=== PATIENT | female | born 1940 | race Hispanic/Latino ===

== ENCOUNTER 2021-01-02 10:33 | Inpatient (IN) | payer MEDICARE, OTHER ==
[~2021-01-02] VITALS: Ht 154.9 cm; Wt 49.8 kg
[2021-01-02] MEDS ORDERED: AMLODIPINE BESYL5 MG PO (13:10)
[2021-01-02] MEDS ORDERED: METFORMIN HCL500 M1 PO (13:11)
[2021-01-02] MEDS ORDERED: LOSARTAN POTASS50 MG PO (13:11)
[2021-01-02] MEDS ORDERED: PIOGLITAZONE HC15 MG PO (13:12)
[2021-01-02] MEDS ORDERED: METOPROLOL SUCC25 MG PO (13:12)
--- NOTE | 2021-01-02 17:10 | NUR ---
PT TO CCU ROOM 129 FROM ER VIA [place]. PT IS ALERT AND ORIENTED X4, ABLE TO TRANSFER WITH ONE PERSON ASSIST TO BED. PT NORMALY USES WALKER. DAUGHTER OF THE PT (ALAN) IS AT THE BEDSIDE. PT ABLE TO ANSWER QUESTIONS EASILY. PT DENIES PAIN AND NAUSEA AT THIS TIME, HOWEVER NEEDS TO SIT UP IN THE BED TO ASSIST WITH WOB. 2L O2 VIA NC IN PLACE.
--- NOTE | 2021-01-02 18:35 | NUR ---
PT IN BED WITH A WARM BLANKET, CALL LIGHT WITHIN REACH. PT WAS ABLE TO EAT SOUP FOR DINNER. IV LASIX GIVEN, PT YET TO VOID. PT REMAINS ALERT AND ORIENTED X4. PT AGREES TO USING HER CALL LIGHT FOR ASSISTANCE.
--- NOTE | 2021-01-02 19:30 | NUR ---
report recieved, care of patient assumed at this time.
--- NOTE | 2021-01-02 20:12 | NUR ---
assessment completed. pt ambulated to bathroom with walker to void. short of breath with exertion but steady on feet. respirations 20-25 at rest, tachypneic with exertion and ambulation. lungs sound diminished in both bases. Pt has 2 plus edema in bilateral lower extremeties up to knee. Assisted with positioning in bed. spoe=94% on 1 L NC. plan of care for evening discussed with pt. call light within reach. denies further needs at this time.
--- NOTE | 2021-01-02 21:00 | NUR ---
PT DID NOT RECIEVE INSULIN FOR BLOOD GLUCOSE IN NORMAL RANGE (SEE EMAR). ASSISTED PT WITH REPOSITIONING IN BED, GIVEN WATER. CALL LIGHT WITHIN REACH. NO FURTHER NEEDS AT THIS TIME.
--- NOTE | 2021-01-02 21:15 | EKG ---
[facility] [address] [facility] [place] [address] Signed Normal sinus rhythm Nonspecific T wave abnormality Abnormal ECG No previous ECGs available Confirmed by SAYDA AGUIRRE MD ([id number]) on 01/02/2021 9:15:40 PM Electronically Signed By: SAYDA AGUIRRE MD 01/02/[id number] PATIENT NAME: MASSIEL CHAVEZ Electrocardiogram DATE OF : 38 PHYSICIAN: SAYDA AGUIRRE MD REPORT #: [id number] REPORT IS CONFIDENTIAL AND NOT TO BE RELEASED WITHOUT AUTHORIZATION
--- NOTE | 2021-01-02 22:17 | NUR ---
lab in room at this time for blood draw
--- NOTE | 2021-01-02 22:30 | NUR ---
PT AMBULATED TO BATHROOM AND NOW BACK TO BED. SPO2 DECREASED TO 83 PERCENT WITH EXERTION. BACK IN BED, OXYGEN IN PLACE, SPO2 =94 PERCENT. CALL LIGHT WITHIN REACH. WILL CONTINUE TO MONITOR.
--- NOTE | 2021-01-02 23:05 | NUR ---
DR AGUIRRE UPDATED ON CRITICAL TROPONIN AND PATIENTS RESPONSE TO THE LASIX. NO NEW ORDERS AT THIS TIME.
--- NOTE | 2021-01-03 00:29 | NUR ---
ASSESSMENT COMPLETED. FINE CRACKLES NOTED IN LEFT LOWER LUNG BASE, NO OTHER CHANGES NOTED FROM PREVIOUS ASSESSMENT. CALL LIGHT WITHIN REACH. NO FUTHER NEEDS AT THIS TIME.
--- NOTE | 2021-01-03 02:00 | NUR ---
pt resting with eyes closed. breathing even and unlabored. spo2=94% on 2 L NC. call light within reach. will continue to monitor.
--- NOTE | 2021-01-03 04:55 | NUR ---
PT UP TO USE BATHROOM, ASSESSMENT COMPLETED AT THIS TIME. PT SHORT OF BREATH WITH EXERTION. SPO2 =85% WITH AMBULATION. BACK IN BED AND ON 2 L NC, SPO2 =96%. LUNGS SOUND DIMINISHED IN BOTH BASES. RESPIRATIONS EVEN AND UNLABORED WITH REST. CALL LIGHT WITHIN REACH. NO FURTHER NEEDS AT THIS TIME.
--- NOTE | 2021-01-03 05:07 | NUR ---
pt to bsc x1 sba. pt short of breath with minimal movement. spo2 decreased to 85%, O2 increased to 3L-NC. Spo2 increased to 92%. Pt did own pericare, assisted back to bed, side rails up, call light in reach. pt denies further needs
--- NOTE | 2021-01-03 05:23 | NUR ---
LAB IN TO DRAW BLOOD AT THIS TIME.
--- NOTE | 2021-01-03 09:15 | NUR ---
SBA TO BR WITH FWW AND 3L NASAL CANULA. TOLERATED WELL. UNABLE TO HAVE BM- RN NOTIFIED. LINEN CHANGED.
--- NOTE | 2021-01-03 12:18 | NUR ---
CCU CALLED FOR REPORT, AWAITING CALL BACK
--- NOTE | 2021-01-03 12:24 | NUR ---
REPORT RECEIVED FROM ABRAHAM DIAZ, AWAITING PTS ARRIVAL TO MED/SURG.
--- NOTE | 2021-01-03 13:15 | NUR ---
PT ARRIVED FROM CCU, TRANSPORTED BY BED. PT DENIES PAIN AND NAUSEA. PTS DAUGHTER ASHLEIGH ACCOMPANYING PT. PT ORIENTED TO ALL. 1 PERSON ASSIST UP TO BEDSIDE COMODE. PT VOIDS 100ML CLEAR YELLOW URINE. PT ASSISTED WITH DOROTEO CARE. UNDERWARE DRY. 1 PERSON ASSIST BACK TO BED. LUGN SOUNDS CLEAR, DEMINISHED IN BASES. OXGYEN SATURATIONS 95% ON 1L O1 BY NC. TELEMETRY MONITORING IN PLACE WITH NORMAL SINUS RHYTHEM NOTED. +1 PITTING EDEMA TO FEET AND ANKLES. PT DENIES ABDOMINAL TENDERNESS. PT REPORTS EDEMA IS IMPROVING. PT REPORTS DIZZINESS AT TIMES. PT RESTING IN BED WITH HEAD OF BED ELEVATED TO 30 DEGREES. BED RAILSUP. BED ALARM ON. CALL LIGHT WITHIN REACH.
--- NOTE | 2021-01-03 13:35 | NUR ---
PT REPORTS PAIN AT IV SITE WHEN ADMINISTERING MEDICAITON. IV FLUSHES WELL BUT PT CONTINUES TO REPORT PAIN. IV DC'D PER PROTOCOL GAUZE AND COBAN APPLIED. NEW IV STARTED TO LEFT FORARM PER PROTOCOL. BRISK BLOOD RETURN NOTED. PT DENIES PAIN AT NEW IV SITE. IV FLUSHED, ALCOHOL CAP APPLIED. PT RESTING IN BED WITH EYES CLOSED. RESPIRATIONS EVEN AND UNALBORED. HEAD OF BED ELEVATED TO 30 DEGREES. CALL LIGHT WITHIN REACH. BED ALARM ON.
--- NOTE | 2021-01-03 15:02 | NUR ---
THIS RN TO ROOM TO CHECK ON PT. PT RESTING IN BED WITH EYES CLOSED. HEAD OF BED ELEVATED TO 25 DEGREES. RESPIRATIONS EVEN AND UNALBORED. BED RAILS UP. CALL LIGHT WITHIN REACH. BED ALARM ON
--- NOTE | 2021-01-03 15:53 | NUR ---
THIS RN TO ROOM TO CHECK ON PT. PT RESTING IN BED WATCHING TV AND VISITING WITH DAUGHTER. PT REPORTS DIZZINESS HAS IMPROVED. STAND BY ASSIST UP TO BEDSIDE COMODE. PT VOIDS 200ML CLEAR YELLOW URINE WITHOUT ISSUE. PT PERFORMS SELF DOROTEO CARE AND PULLS UP HER OWN PANTS AND UNDERWARE. PT DENIES ADDITIONAL REQUESTS OR COMPLAINTS. CALL LIGHT WITHIN REACH. DAUGHTER AT BEDSIDE. BED ALARM ON.
--- NOTE | 2021-01-03 16:15 | NUR ---
PT TRANSFERED FROM CCU THIS SHIFT, HERE FOR CHF EXACERBATION. PT REMAINS ON BED REST WITH BATHROOM PRIVLEGES. PT UP TO BESIDE COMODE WITH 1PERSON TO STAND BY ASSIST. PT TOELRATING 60GRAHM LOW SODIUM DIET WELL. PT OREINTED TO ALL. LUNG SOUNDS CLEAR BUT DEMINISHED IN PLACES. PT REMAINS ON 1L O2 BY NC WITH OXYGEN SATURATIONS ABOVE 90%. IV LASIX GIVEN THIS SHIFT WITH MODERATE OUTPUT. CHF EDUCATION DONE WITH PT INCLUDING RED/YELLOW/GREEN ZONES. +1 PITTING EDEMA CONTINUES IN FEET AND ANKES. VARGAS CATHETER NOT IN PLACE WHEN PT WAS TRANSFERED TO MED/SURG. BLOOD SUGAR CHECKS WITH MEALS AND SLIDING SCALE INSULIN GIVEN. MONITORING LABS, AWAITING ECHOCARDIOGRAHM. BED ALARM IN PLACE FOR SAFETY. PTS DAUGHTER AT BEDSIDE FOR MOST OF SHIFT.
--- NOTE | 2021-01-03 16:25 | NUR ---
MED REC COMPLETE
--- NOTE | 2021-01-03 16:40 | NUR ---
PT CALL LIGHT ON. HERB COUNSELOR REPORTS PT NEEDS SOMETHING FOR NAUSEA. THIS RN TO ROOM TO EVALUATE. PT REPORTS SHE FEELS "WOOZY." PT DENIES NAUSEA AND DENIES EMESIS. PT DENIES DIZZINESS. BLOOD SUGAR 98 AT THIS TIME. PT DENEIS FEELINS OF HUNGER OR TREMORS. PT REPORTS FEELING "A LITLE COLD AND WOOZY." PT STATES THE FEELS STARTED AFTER COUGHING AND "IT'S BECAUSE OF MY BREATHING." LUNG SOUNDS CLEAR IN UPPER LOBES, DEMINISHED IN BASES. OXGYEN SATURATION OF 95% ON 1L O2 BY NC. PT DECLINES REPOSITONING. DENIES FEELINGS OF SHORTNESS OF BREATH. PT REPORTS SHE WOULD LIKE TO TRY NAUSEA MEDICATION. ZOFRAN GIVEN. PT WATCHING TV AND DENIES ADDITIONAL REQUESTS OR COMPLAINTS. BED RAILS UP. CALL LIGHT WITHIN REACH. BED ALARM ON. PTS DAUGHTER AT BEDSIDE.
--- NOTE | 2021-01-03 18:50 | NUR ---
THIS RN TO ROOM TO CHECK ON PT. PT REPORTS NAUSEA AND FEEINGS OF "WOOZINESS" HAVE RESOLVED. PT REPORTS SHE WAS ABLE TO EAT DINNER WITH NO ISSUES. PT DENIES PAIN AND NAUSEA. NO REQUESTS OR COMPLAINTS AT THIS TIME. CALL LIGHT WITHIN REACH. BED RAILS UP. BED ALARM ON.
--- NOTE | 2021-01-03 19:30 | NUR ---
REPORT GIVEN TO THIS RN BY ABRAHAM RIVERA. PATIENT RESTING IN SEMI-FOWLERS POSITION, WITH EYES CLOSED, RESPIRATIONS ARE REGULAR AND EVEN, AND CALL LIGHT OSKAR LALA.
--- NOTE | 2021-01-03 20:50 | NUR ---
PATIENT UP TO THE BATHROOM AND BACK TO BED 1PSBA AND FWW, THIS RN PRESENT AND PATIENT DID WELL. PATIENT'S EVENING ANTIBIOTIC HUNG AND IV FLUSHED WELL. VS STABLE AND PATIENT ASSESSMENT COMPLETE. CALL LIGHT IS IN REACH AND PATIENT HAS NO OTHER CARE NEEDS AT THIS TIME.
--- NOTE | 2021-01-03 22:46 | NUR ---
IN TO ASSIST PT TO THE TOILET, SBA FWW, NO FURTHER NEEDS AT THIS TIME, BED ALARM IS SET
--- NOTE | 2021-01-03 23:51 | NUR ---
PATIENT RESTING QUIETLY ON 1L/NC, RESPIRATIONS ARE REGULAR AND EVEN, EYES ARE CLOSED, PATIENT IN SEMI-FOWLERS POSITION IN BED. CALL LIGHT IS IN REACH AND HR=67 ON TELE AT THIS TIME.
--- NOTE | 2021-01-04 01:04 | NUR ---
PATIENT RESTING QUIETLY IN LOW FOWLERS POSITION IN BED, EYES CLOSED, RESPIRTATIONS ARE REGULAR AND EVEN, AND CALL LIGHT IS IN REACH. NO CAFRE NEEDS NOTED AT THIS TIME.
--- NOTE | 2021-01-04 02:32 | NUR ---
PATIENT REMAINS IN SEMI-FOWLERS POSITION, BUT HAS TURNED PARTIALLY TO HER LEFT SIDE AND REMAINS ON 1L/NC WITH HR=66 ON TELE. PATIENT HAS NO CURRENT CARE NEEDS AT THIS TIME AND CALL LIGHT IS IN REACH.
--- NOTE | 2021-01-04 03:43 | NUR ---
PATIENT STILL RESTING QUIETLY IN SEMI-FOWLERS POSITION TURNED TOWARD HER RIGHT SIDE. PATIENT REMAINS ON 1L/NC, RESPIRATIONS REGULAR AND EVEN, HR=68BPM ON THE TELE, AND CALL LIGHT IS IN REACH. PATIENT HAS NO CAR NEEDS AT THIS TIME.
--- NOTE | 2021-01-04 03:55 | NUR ---
IN TO ASSIST PT TO THE TOILET, DAILY WEIGHT TAKEN BEFORE RETURNING TO BED, BED ALARM SET, NO FURTHER NEEDS AT THIS TIME
--- NOTE | 2021-01-04 05:17 | NUR ---
PATIENT'S AM ASSESSMENT COMPLETE. PATIENT DENIES PAIN OR ANY OTHER CARE NEEDS AT THIS TIME. LIGHTS TURNED BACK DOWN, VS STABLE, AND I+O RECORDED. CALL LIGHT IS IN REACH.
--- NOTE | 2021-01-04 07:28 | NUR ---
PATIENT RESTING QUIETLY ON 1L/NC, EYES CLOSED, RESPIRATIONS REGULAR AND EVEN, AND CALL LIGHT IS IN REACH. SHIFT REPORT GIVEN TO ABRAHAM LAO.
--- NOTE | 2021-01-04 07:31 | NUR ---
this rn received report from eddie beltran. pt appears to be resting at this time with respirations noted and call light within reach
--- NOTE | 2021-01-04 08:18 | NUR ---
DAVE DARBY REPORTS PT IS HAVING NAUSEA, THIS RN TO ROOM. PT REPORTS "CHEST PRESSURE" AT 6/10 AND NAUSEA. PT DESCRIBES CHEST PRESSURE "LIKE I'M WEARNIGN A TIGHT BRA." ZOFRAN GIVEN. VITALS SIGNS TAKEN. BLOOD PRESSURE NOTED TO BE ELEVATED. VITAL SIGNS OTHERWISE STABLE. NO CHANGES TO FISH CULTURIST NOTED. PT REPORTS PRESSURE AND NAUSEA ARE IMPROVING WITH ZOFRAN ADMINISTRATION. CHARGE NURSE, ARRON, NOTIFIED AND TO BEDSIDE FOR EVALUATION. HEART TONES REGULAR. PT DENIES ADDITIONAL REQUESTS OR COMPLAINTS. CALL LIGHT WIHTIN REACH. PT REMAINS UP TO CHAIR. PTS PRIMARY RN UPDATED.
--- NOTE | 2021-01-04 08:27 | NUR ---
PATIENT TO BATHROOM AND THEN TO CHAIR, SBA FWW. PATIENT FELT SICK TO HER STOMACHE WHEN BACK TO CHAIR, RN NOTIFIED. CALL LIGHT IN REACH. NO FURTHER NEEDS AT THIS TIME.
--- NOTE | 2021-01-04 08:30 | NUR ---
NOTIFIED IN AM ROUNDING MEETING THAT PT HAD NAUSEA AND REPORTED CHEST TIGHTNESS, ON ASSESSMENT, PT REPORTS ITS IS LIKE HAVING TIGHT BRA ON AROUND RIBS, SHE REPORTED MILD DISCOMFORT, B/P HIGH SHE HAS CARDIAC MEDS TO BE GIVEN THIS AM. OXYGEN SATURATION 94% ON ROOM AIR, NO DYSPNEA. DR. AGUIRRE SAID SHE WOULD ROUND ON HER FIRST.
--- NOTE | 2021-01-04 08:57 | NUR ---
this rn in pts room to check on pt. briana rn in pts room previously due to pt stating she needed the restroom, pt then reported having chest tightness around the sides of her chest. by the time this rn in room pt reports that this has improved. pt reports that her nausea has improved as well and is just wanting broth this am for breakfast. pt has no other problems or concerns
--- NOTE | 2021-01-04 10:17 | NUR ---
PATIENT IN CHAIR RESTING AT THIS TIME. VITALS DONE BY RN. PATIENT REFUSED ORAL CARE AT SINK EARLIER. CALL LIGHT IN REACH. NO FURTHER NEEDS AT THIS TIME.
--- NOTE | 2021-01-04 13:25 | NUR ---
THIS RN IN PTS ROOM TO CHECK ON PT AND GIVE PT HER AFTERNOON MEDS. PT STATES THAT SHE IS DOING WELL, WHEN THIS RN WENT TO FLUSH IV AND IT WAS LEAKING. PT TOLERATED WELL WITH NEW IV PLACEMENT. PTS DAUGHTER AT BEDSIDE, ALL QUESTIONS ANSWERED TO THIS RNS ABILITY
--- NOTE | 2021-01-04 13:57 | NUR ---
PATIENT BACK TO CHAIR FROM BATHROOM, SBA FWW. VISITOR IN ROOM. VITALS AND I&O'S CHARTED. CALL LIGHT IN REACH. NO FURTHER NEEDS AT THIS TIME.
--- NOTE | 2021-01-04 18:54 | NUR ---
IN TO DO VITALS. VITALS AND I&O'S CHARTED. PATIENT TO BATHROOM FROM CHAIR, 1PA FWW. CALL LIGHT IN REACH, NO FURTHER NEEDS AT THIST BHAVIK.
--- NOTE | 2021-01-04 19:05 | NUR ---
PT BACK FROM THE TOILET, SETUP IN THE CHAIR, NO FURTHER NEEDS
--- NOTE | 2021-01-04 19:15 | NUR ---
SHIFT REPORT RECEIVED FROM DAYSHIFT ABRAHAM LAO AT BEDSIDE. pt AWAKE AND RESTING IN BED, NO NEEDS VERBALIZED. CALL LIGHT IN REACH AND BOARD UPDATED.
--- NOTE | 2021-01-04 20:30 | NUR ---
ASSESSMENT COMPLETE, NO SHCEDULED MEDS. pt A/OX4, VSS. ON 1LNC, DENIES SOB AT REST. WHEN ASKED IF pt EXPERIENCES SOB ON EXERTION, pt STATES, "NOT TODAY". LUNG SOUNDS CLEAR, DIMINISHED IN LOWER LOBES. UP SBA WITH FWW TO VOID AND BACK IN CHAIR WITH BLE ELEVATED. FRESH WATER PROVIDED, CALL LIGHT IN REACH.
--- NOTE | 2021-01-04 23:19 | NUR ---
pt RESTING IN CHAIR ON HER LEFT SIDE, AWAKE WHEN THIS RN ROUNDED IN ROOM. LIGHTS TO ROOM TURNED OFF. NO ADDITIONAL NEEDS, CALL LIGHT IN REACH.
--- NOTE | 2021-01-05 01:21 | NUR ---
ROUNDED ON pt, pt AWOKE TO VOICE. UP SBA WITH FWW TO BATHROOM TO VOID AND BACK TO BED. ASSESSMENT COMPLETE, NO ACUTE CHANGES. pt DENIES PAIN AND NAUSEA. 1LNC REMAINS IN PLACE, pt DENIES SOB. pt ABLE TO CHANGE POSITIONS IN BED INDEPENDENTLY. NO FURTHER NEEDS, CALL LIGHT IN REACH.
--- NOTE | 2021-01-05 02:22 | NUR ---
CALL LIGHT ANSWERED, pt UP SBA WITH FWW TO VOID. WHILE IN BATHROOM pt VERBALIZES TIGHTNESS AND POINTS TO EPIGASTRIC AREA. pt STATES, "IT'S NOT PAIN". pt REPORTED EARLIER EPISODE ON DAYSHIFT PER PREVIOUS RN NOTES, APPEARS TO HAVE RESOLVED WITH ZOFRAN. pt WAS LAYING FLAT IN BED, ASSISTED WITH ELEVATING HOB, PRN ZOFRAN ALSO GIVEN. VS TAKEN AND STABLE. LUNG SOUNDS CLEAR, DIMINISHED IN LOWER LOBES. HEART SOUNDS REGULAR, HR WNL. RR 16. WILL CONTNUE TO MONITOR, CALL LIGHT IN REACH.
--- NOTE | 2021-01-05 03:52 | NUR ---
PT CALLED FOR HELP TO LOWER THE HEAD OF HER BED. SHE DENIES FURTHER NEEDS AT THIS TIME. CALL LIGHT IS CLOSE.
--- NOTE | 2021-01-05 04:24 | NUR ---
pt HAS YET TO HAVE BM WHILE HERE IN HOSPITAL, DISCUSSED IF CONSTIPATION WAS NORMAL FOR pt. pt STATES, "YEAH SOMETIMES". pt REPORTS SHE THINKS SHE TAKES MIRALAX AT HOME SOMETIMES. NIO FOR MIRALAX ADDED TO EMAR TO START IN AM.
--- NOTE | 2021-01-05 04:35 | NUR ---
pt HERE FOR NEW ONSET CHF. A/OX4, CALLS APPROPRIATELY. SBA WITH FWW, 1LNC IN PLACE. pt REPORTS SOME EPIGASTRIC TIGHTNESS, RESOLVED AFTER HOB ELEVATION AND PRN ZOFRAN. VSS. 60G CARB/2G SODIUM DIET, BOWEL TONES ACTIVE. NO BM SINCE HOSPITALIZATION, NIO MIRALAX ADDED TO EMAR. PLAN FOR ECHO ON 01/06.
--- NOTE | 2021-01-05 05:43 | NUR ---
pt AWAKE, GAS ENGINE PERFORMANCE ENGINEER RECENTLY OBTAINED VS, I&O'S, AND WEIGHT. pt REPORTS EPIGASTRIC TIGHTNESS RESOLVED, NO NEEDS VERBALIZED. CALL LIGHT IN REACH.
--- NOTE | 2021-01-05 07:28 | NUR ---
this rn received report from kayce beltran. pt states that she needs to use restroom, ramana beltran able to get pt to restroom
--- NOTE | 2021-01-05 07:45 | NUR ---
patient lying in the bed, lab in the room. patient refused warm washcloth, states she wanted to rest a little more.
--- NOTE | 2021-01-05 09:47 | NUR ---
this rn in pts room to give pt her morning meds and do mornign assessment. pt laying in bed. this rn to turn off pts oxygen and placed pt on a cpox to monitor oxygen. pt while this rn was giving meds started to drift off to sleep and o2 was at 90% on ra, pt was at 95% on 1L. pt states that is just fatigued this am but has no other concerns this am
--- NOTE | 2021-01-05 12:05 | NUR ---
THIS BEJARANO TOOK OVER CARE OF PT. HOT CUP OF TEA PROVIDED AT THIS TIME. PT SITTING UP IN BED WATCHING TV. FAMILY HAS BEEN INTO SEE PT THIS MORNING.
--- NOTE | 2021-01-05 13:52 | NUR ---
PT UP TO THE BATHRROM, VOIDED AND MISSED THE HAT. BACK TO BED WALKING WITH FWW. O2 1L'S AT THIS TIME. PT UP TO THE CHAIR, CALL LIGHT WITHIN REACH AND PHONE. BEDSIDE TRAY CLOSE TO PT ALSO. ENCOURAGE PT THAT SHE WILL GET UP AND AMBULATE IN THE [place] LATER DUE TO PT C/O BEING DIZZY A LITTLE PER PT.
--- NOTE | 2021-01-05 15:13 | NUR ---
PT UP AMBULATING TO ROOM 111 ON ROOM AIR SPO2 CHECKED AND GOES FROM 82-84% RA, BACK TO ROOM PT C/O'S SOME SOB PLACED ON O2 @1L'S VIA NC. SPO2 INCREASES TO 91%. PT UP IN CHAIR.
--- NOTE | 2021-01-05 15:17 | NUR ---
got patient up to walk, to see how her oxygen maintained at room air. patient dropped to 82%, but recovered within 1-2 minutes after sitting in the chair and putting her NC in her nose at 1L.
--- NOTE | 2021-01-05 19:20 | NUR ---
SHIFT REPORT RECEIVED FROM DAYSHIFT ABRAHAM BELTRAN. pt AWAKE AND RESTING IN BED, 1LNC IN PLACE. NO DISTRESS NOTED, RR EVEN AND UNLABORED. CALL LIGHT IN REACH.
--- NOTE | 2021-01-05 20:12 | NUR ---
ASSESSMENT COMPLETE, SCHEDULED MIRALAX GIVEN. pt DENIES NAUSEA, BOWEL TONES ACTIVE. ABD SOFT, NONTENDER. pt INSTRUCTED TO COMPLETE MIRALAX IF POSSIBLE BEFORE BED, pt AGREED. DENIES PAIN, VSS. A/O4. BLE +1 EDEMA NOTED, ELEVATED IN BED. NO ADDITIONAL NEEDS VERBALIZED. CALL LIGHT IN REACH.
--- NOTE | 2021-01-05 21:29 | NUR ---
CALL LIGHT ANSWERED. pt ASSISTED BACK TO BED WITH FWW AFTER LOOSE BM. CALL LIGHT AND PERSONAL SUPPLIES IN REACH. NO ADDITIONAL REQUESTS.
--- NOTE | 2021-01-06 01:24 | NUR ---
pt RESTING IN BED, EYES CLOSED. RR EVEN AND UNLABORED. NO DISTRESS NOTED, CALL LIGHT IN REACH.
--- NOTE | 2021-01-06 03:01 | NUR ---
pt RESTING IN BED WITH EYES CLOSED. RR EVEN AND UNLABORED, NO DISTRESS NOTED. 1LNC IN PLACE, CALL LIGHT IN REACH.
--- NOTE | 2021-01-06 06:29 | NUR ---
pt AWAKE AND RECENTLY UP TO VOID WITH EMBALMER/FUNERAL DIRECTOR. NO ACUTE CHANGES TO ASSESSMENT. pt REPORTS SOME MINIMAL NAUSEA AFTER AMBULATING, DECLINES NAUSEA MEDICATION. BLE ELEVATED WITH PILLOW. CALL LIGHT IN REACH AND pt DENIES PAIN.
--- NOTE | 2021-01-06 07:05 | NUR ---
Report received from Magnolia ROSARIO. Pt resting in bed, currently imaging in room doing echo. Pt has no needs at this time, will continue plan of care.
--- NOTE | 2021-01-06 08:00 | NUR ---
Breakfast taken to patient who is resting in bed with eyes closed, awakens to voice and states no needs at this time.
--- NOTE | 2021-01-06 08:00 | NUR ---
PT IS IN BED ASLEEP. WHITEBOARD WAS UPDATED. CALL LIGHT IS WITHIN REACH. NO FURTHER NEEDS AT THIS TIME.
--- NOTE | 2021-01-06 09:25 | NUR ---
Spoke with Marialuisa. She states she lives with her daughter in a 2 story home. She uses the main floor only. Her PCP is from the [facility]. She uses a walker, cane, and shower chair. Pt denies need and plans on dc to home with her daughter to provide care.
--- NOTE | 2021-01-06 09:45 | NUR ---
Scheduled medications administered, assessment complete. Pt on 1L NC, states no chest tightness or SOB. Lungs clear, HRR. VSS, I/O's recorded. IV flushes WNL. No needs at this time. Call light in reach.
--- NOTE | 2021-01-06 12:30 | NUR ---
Rounded on patient who is resting in bed with no needs. Call light in reach
--- NOTE | 2021-01-06 14:36 | NUR ---
PATIENT IN BED WATCHING TV. VITALS AND I&O'S CHARTED. CALL LIGHT IN REACH. NO FURTHER NEEDS AT THIS TIME.
--- NOTE | 2021-01-06 16:16 | NUR ---
Assessment complete. Pt resting in bed with daughter at bedside. She denies SOB/pain, on RA, SPO2 97%. Lungs clear, dim in bases, no acute changes. No further needs at this time, call light in reach.
--- NOTE | 2021-01-06 17:17 | NUR ---
Certified Heart Failure Nurse Notes: Diagnosis: CHF Comorbidities:HTN,diabetes II, and CKD Ui Ux Engineer -NA PCP:Claudio Remy in [facility] Date of echocardiogram -PENDING Admit Wt.: 116 Today's Wt.:110 Admit BNP: 3470 Social support system: Is going to be staying with daughter Verna. Daughter is at bedside and asking questions. Weight monitoring: Scale present in home. Not currently weighing routinely. Instructed on how to weigh daily/ identifies when to notify PCP Symptom management: Addressed monitoring and reporting changes in weight or symptoms utilizing Zones form Diet: Usual meals include what daughter cooks. Instructed on low sodium diet and she is familiar with this. Daughter is asking for more information. Usual physical activity: Tries to walk but has hip pain. Given alternative of using pedaling or arm ergometer. To slowly increase activity once stable to 3-5 times a week. To discuss resistance training with physician. Medication routine: Does use weekly pill box and does sometimes miss a medication. Given other tips on remembering to take meds. Has been counseled on minimizing/avoiding use of NSAIDs Advanced directive: Not discussed at this initial visit Recommendations prior to discharge: Document ambulation oxygen saturations prior to discharge Absence of orthostatic hypotension. Discharge weight less than admit weight. Discharge BNP less than admit (as per [facility] Heart Failure DC Bundle) Follow-up plans: Patient agrees to receive follow up call from this service. Patient does not currently qualify for cardiac rehabilitation but would be welcome for complimentary outpatient heart failure education. She would like to switch to a local PCP and her current provider is retiring. Recommended the first post hospital f/u be with current PCP; unless they are accepted by new PCP and can be seen in 7-10 days. Teaching materials: Has [facility] Heart Failure bundle folder-[facility] My Action Plan Living Well with Heart Failure book, Daily weight and symptom monitoring log, Zones magnet Given [facility] contact information Low Sodium Shopping list. Lower sodium dining list. Few heart healthy recipes. Use of spices handout, and how to heart healthy diet [facility] handout.
--- NOTE | 2021-01-06 19:29 | NUR ---
REPORT RECEIVED FROM DAY SHIFT RN. PT LYING IN BED ALERT AND ORIENTED. DENIES NEEDS. WHITE BOARD UPDATED. CALL LIGHT IN REACH.
--- NOTE | 2021-01-06 20:30 | NUR ---
EVENING ASSESSMENT COMPLETE. SCHEDULED STOOL SOFTENER HELD, PT REPORTS MULTIPLE LOOSE BM TODAY. PT DENIES PAIN OR NAUSEA. SBA TO BR WITH FWW. PT REPORTS DIZZINESS UPON SITTING UP ON SIDE OF BED. PT SAT ON SIDE OF BED TIL DIZZINESS PASSED. GAIT STEADY. BACK TO BED, CRISTA WELL. VS AND I&O COMPLETE. FRESH WATER PROVIDED. PT DENIES QUESTIONS OR CONCERNS. CALL LIGHT IN REACH.
--- NOTE | 2021-01-06 23:39 | NUR ---
PT RESTING IN BED ON RIGHT SIDE, EYES CLOSED. RESPIRATIONS EVEN. NO APPARENT DISTRESS.
--- NOTE | 2021-01-07 03:07 | NUR ---
CALL LIGHT ANSWERED. PT SITTING ON SIDE OF BED. REPORTS FEELING SOB. SpO2 94% ON RA. HR 70'S. RESPIRATIONS UNLABORED. LUNGS CLEAR. UP TO BR WITH SBA TO VOID. PT CRISTA WELL. GAIT STEADY. BACK TO BED. HOB ELEVATED. PT DENIES FURTHER NEEDS. CALL LIGHT IN REACH.
--- NOTE | 2021-01-07 03:59 | NUR ---
CALL LIGHT ANSWERED. PT UP TO BSC WITH SBA TO VOID. SATS DOWN TO 60'S ON 15L/HIGH FLOW NC. PT BACK TO BED. 10L OXYMASK PLACED WITH 10L HIGH FLOW NC. SATS UP TO 96%. PT LYING ON RIGHT SIDE WITH HOB ELEVATED.
--- NOTE | 2021-01-07 06:52 | NUR ---
VS AND I&O COMPLETE. DAILY WEIGHT DONE. PT UP TO BR WITH SBA AND FWW TO VOID. DENIES SOB. BACK TO BED, CRISTA WELL. DENIES FURTHER NEEDS. CALL LIGTH IN REACH.
--- NOTE | 2021-01-07 07:33 | NUR ---
this rn received report from deric beltran. pt appears to be resting this am with respirations noted
--- NOTE | 2021-01-07 07:50 | NUR ---
PT WAS IN BED. PT WAS GIVEN A WARM WASHCLOTH FOR THEIR FACE. PT DECLINED GETTING UP FOR BREAKFAST BUT STATED THEY WILL AFTER BREAKFAST. WHITEBOARD WAS UPDATED. NO FURTHER NEEDS AT THIS TIME.
--- NOTE | 2021-01-07 07:59 | NUR ---
THIS RN IN PTS ROOM TO GIVE PT HER MORNING MEDS AND DO MORNING ASSESSMENT. PT STATES THAT SHE IS HAVING SLIGHT CHEST TIGHTNESS BUT IT IS IMPROVED SINCE COMING INTO TO HOSITAL, PT REPORTS THE SAME THING ABOUT SOB. PT STATES THAT SHE IS OKAY HAVING BREAKFAST IN BED AND MIGHT WANT TO GET TO CHAIR AFTER BREAKFAST.
--- NOTE | 2021-01-07 09:25 | NUR ---
THIS AIRBRUSH ARTIST PHOTOGRAPHY ASSISSTED PT TO THE BATHROOM THEN TO THE CHAIR. CALL LIGHT IS WITHIN REACH. NO FURTHER NEEDS AT THIS TIME. THIS AIRBRUSH ARTIST PHOTOGRAPHY TOOK PT'S VITAL SIGNS AND I&OS.
--- NOTE | 2021-01-07 10:15 | NUR ---
Spoke with Marialuisa. Daughter in room. Again discussed pcp, as he is retiring. Marialuisa would like a DrFernando in this area. Daughter states she see's Dr. Lerner at [facility]. I will fax her chart to see if they have any available providers at this time. Pt. cont. to plan for dc to home with daughter.
--- NOTE | 2021-01-07 13:31 | NUR ---
PT SITTING UP IN CHAIR, FAMILY ON COUCH. PT DENIES CONCERNS OR NEEDS ATT. ATE APPROX 50% OF DINNER.
--- NOTE | 2021-01-07 14:15 | NUR ---
CONSULT RECEIVED FOR NUTRITION EDUCATION FOR CHF. STOPPED BY PATIENT'S ROOM EARLIER THIS MORNING AND PATIENT WAS RESTING IN HER CHAIR. HER DAUGHTER WAS NOT PRESENT AT THAT TIME. I STOPPED BY THIS AFTERNOON AND PATIENT'S DAUGHTER WAS THERE. THEY RECEIVED CHF EDUCATION INCLUDING A LOW-SODIUM HANDOUT, RECIPES, AND LOW-SODIUM FLAVORING IDEAS FROM JESUS MANUEL FIELD GEOLOGIST, YESTERDAY. I PRINTED OUT AN UPDATED LOW-SODIUM GROCERY LIST AND PUT IN THEIR PACKET. PATIENT'S DAUGHTER HAD A FEW MORE QUESTIONS WHICH I WAS HAPPY TO ANSWER. PATIENT SAID SHE TYPICALLY EATS SMALL AMOUNTS OF FATS SUCH BUTTER. OCCASIONALLY WILL DRINK AN ENSURE BETWEEN MEALS. SHE DOES NOT SNACK A WHOLE LOT. PATIENT HAS DIABETES WELL, SO SHE IS AWARE OF EATING REGULARLY AND SMALL PORTIONS. I REMINDED THEM THAT FRUITS AND VEGGIES DON'T HAVE ADDED SALT BUT SOME HAVE MORE CARBS THAN OTHERS, BUT WE NEED THESE FOODS FOR GOOD HEALTH. PATIENT WAS ASKING ABOUT AN AVOCADO AND VEGGIE SANDWICH FOR DINNER. I TOLD HER WE COULD MAKE IT FOR HER - I WILL LET THE CLOTH PACKER KNOW IF THAT WHAT SHE WOULD LIKE. I WILL FIGURE OUT THE CARBS AND SODIUM. MY NAME AND OFFICE # PROVIDED IN CASE THE PATIENT OR HER DAUGHTER HAVE QUESTIONS.
[2021-01-07] MEDS ORDERED: AMLODIPINE BESY10 MG PO (14:49)
[2021-01-07] MEDS ORDERED: METOPROLOL SUCC50 MG PO (14:49)
[2021-01-07] MEDS ORDERED: TORSEMIDE10 MG PO (14:50)
--- NOTE | 2021-01-08 17:15 | NUR ---
Heart Failure Follow Up Call: Spoke to Marialuisa Carrillo by phone. Her daughter did not have any questions for me. Patient states she is tired but is feeling improved. Weight today 109 lb (dc weight 110#). No questions about food or medication changes. Has f/u appointment with new PCP Miguel.
== END 2021-01-07 16:35 | disposition home or self-care (01) | DRG 291 ==
LOC: ED 10:33 → CCU 10:36 → MS 01-03 11:14
PROVIDERS: ADMIT Internal Medicine; ATTEND Internal Medicine
DX: I13.0 Hypertensive heart and chronic kidney disease with heart failure and stage 1 through stage 4 chronic kidney disease, or unspecified chronic kidney disease (principal); I50.33 Acute on chronic diastolic (congestive) heart failure; N18.4 Chronic kidney disease, stage 4 (severe); N17.9 Acute kidney failure, unspecified; I34.0 Nonrheumatic mitral (valve) insufficiency; E11.22 Type 2 diabetes mellitus with diabetic chronic kidney disease; Z79.899 Other long term (current) drug therapy; T38.3X5A Adverse effect of insulin and oral hypoglycemic [antidiabetic] drugs, initial encounter
CPT/HCPCS: 71045; 80048; 80053; 82565; 83036; 83880; 84484; 84520; 85025; 93005; 93010; 93306; 94760; 96374; 99285-25; C9803; J1650; J1815; J1940; J2405; J7040; U0003

== ENCOUNTER 2021-01-30 17:45 | Emergency (ER) | payer MEDICARE, OTHER ==
[~2021-01-30] VITALS: Ht 154.9 cm; Wt 49.5 kg
[~2021-01-30 17:45] MED LIST: AMLODIPINE BESY10 MG PO; AMLODIPINE BESYL5 MG PO; LOSARTAN POTASS50 MG PO; METFORMIN HCL500 M1 PO; METOPROLOL SUCC25 MG PO; METOPROLOL SUCC50 MG PO; PIOGLITAZONE HC15 MG PO; TORSEMIDE10 MG PO
--- OUTSIDE RECORDS SUMMARY | 2021-01-30 17:52 | XMS ---
PreManage Notification: MASSIEL CHAVEZ Security Family Helper Events No recent Security Events currently on file CRITERIA MET - [facility] - 2 Visits in 30 Days CARE PROVIDERS BRYANT SERRANO Internal Medicine Current PHONE: [phone] Lazarus has no Care Guidelines for this patient. [facility] VISIT COUNT (12 MO.) 2 [facility] TOTAL 2 NOTE: Visits indicate total known visits. ED/UCC VISIT TRACKING (12 MO.) 01/30/2021 17:46 [facility] TYPE: Emergency COMPLAINT: - LOW OXYGEN LEVELS 01/02/2021 10:35 [facility] TYPE: Emergency COMPLAINT: - SOB, NAUSEA, COUGH, CHEST PRESSURE, CHILLS INPATIENT VISIT TRACKING (12 MO.) 01/03/2021 11:14 [facility] TYPE: Medical Surgical COMPLAINT: - CHF- PROBABLE ACUTE SYSTOLIC DIAGNOSES: - Hypertensive heart and chronic kidney disease with heart failure and stage 1 through stage 4 chronic kidney disease, or unspecified chronic kidney disease - Hypertensive heart and chronic kidney disease with heart failure and stage 1 through stage 4 chronic kidney disease, or unspecified chronic kidney disease - Nonrheumatic mitral (valve) insufficiency - Adverse effect of insulin and oral hypoglycemic [antidiabetic] drugs, initial encounter - Acute kidney failure, unspecified - Type 2 diabetes mellitus with diabetic chronic kidney disease - 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
[2021-01-30] MEDS ORDERED: LOSARTAN POTASS50 MG PO (18:05)
[2021-01-30] MEDS ORDERED: METFORMIN HCL500 M1 PO (18:05)
[2021-01-30] MEDS ORDERED: ZOFRAN4 MG PO (21:04)
--- NOTE | 2021-01-31 07:23 | EKG ---
[facility] [address] [place] [address] Signed Normal sinus rhythm T wave abnormality, consider anterior ischemia Abnormal ECG When compared with ECG of 02-JAN-2021 15:46, Nonspecific T wave abnormality has replaced inverted T waves in Lateral leads Confirmed by SAYDA AGUIRRE MD ([id number] on 01/31/2021 7:23:03 AM Electronically Signed By: SAYDA AGUIRRE MD 01/31/21 0723 PATIENT NAME: MAYI CHAVEZA Electrocardiogram DATE OF : 38 PHYSICIAN: SAYDA AGUIRRE MD REPORT #: [id number] REPORT IS CONFIDENTIAL AND NOT TO BE RELEASED WITHOUT AUTHORIZATION
== END 2021-01-30 21:44 | disposition home or self-care (01) ==
LOC: ED 17:45
DX: I50.9 Heart failure, unspecified (principal); E11.22 Type 2 diabetes mellitus with diabetic chronic kidney disease; N18.4 Chronic kidney disease, stage 4 (severe); D63.1 Anemia in chronic kidney disease; Z79.899 Other long term (current) drug therapy; Z20.822 Contact with and (suspected) exposure to COVID-19
CPT/HCPCS: 71045; 80053; 83735; 83880; 84484; 85025; 93005; 93010; 99285-25; A9270; C9803; U0003